=== PATIENT | female | born 1990 | race Caucasian/White ===

== ENCOUNTER 2017-11-26 15:57 | Emergency (ER) | payer SELFPAY ==
[2017-11-26 16:38] VITALS: BMI 25.1
[2017-11-26] MEDS ORDERED: ACETAMINOPHEN 1000 MG/100 ML VIAL (NON FORMULARY) IVPB ONE (17:14)
[2017-11-26] MEDS ORDERED: SODIUM CHLORIDE 0.9% 500 ML INFUS.BAG IV ONE (17:14)
--- NOTE | 2017-11-26 17:23 | PDOC ---
Attending Attestation - Resident Resident Name: Maninder Arredondo - ED Attending Attestation I have performed the following: I have examined & evaluated the patient, The case was reviewed & discussed with the resident, I agree w/resident's findings & plan, Exceptions are as noted - HPI HPI: 11/26/17 17:22 27y F hx of chlamydia, ?ovarian infection, presents with complaint of LLQ dull abd pain x 2-3 days, pain is sharp/crampy in nature lasting for a minute before resolving , without radiation but worsens from to level 7. Patient deneis any fever/chills, vaginal bleeding or discharge, back pain, diarrhea, melena, bpr. pts labs sexual encounter was 3 months ago. Pt had her last depo shot 3 or 4 months ago and was due for her next one a few weeks ago. On exam pt is well appearing no distress abd soft nontender, no rebound/guarding no cva tenderness pelvic exam as documented by dr. arredondo ddx: ovarian cyst, torsion, consider STDs - will send gc but as pt has not been sexually active nor with discharge ercently will defer prophylactic treatment will ck TVUS if neg will dc with pmd fu (Dr. Chowdhury) - Physicial Exam PE: 11/26/17 19:48 see above - Medical Decision Making 11/26/17 19:48 see above
--- NOTE | 2017-11-26 17:44 | PDOC ---
History of Present Illness - General Chief Complaint: Pain Stated Complaint: ABD PAIN Time Seen by Provider: 11/26/17 16:52 - History of Present Illness Initial Comments: 11/26/17 17:39 27 yo F w a hx of chlamydia and an undetermined L ovarian infection in the past is here with on and off 3 days of sharp LLQ abdominal pain. She is not currently experiencing much pain, she rates it as 2/10. At its worst she rates the pain as 8/10. The pain does not radiate to the groin or back. The pain is worse when she lies on her back and better when she lies on her side. She denies recent fevers or infections, denies nausea or vomiting. She has been eating and drinking normally with no complaints. She has been going to the bathroom normally and has no urinary or bowel complaints. She is on depot control and gets a shot every 3 months. Past History - Past Medical History Allergies/Adverse Reactions: Allergies Allergy/AdvReac Type Severity Reaction Status Date / Time No Known Allergies Allergy Verified 12/28/12 12:07 Home Medications: Ambulatory Orders Estradiol Cypionate [Depo-Estradiol] 5 mg IM ASDIR 11/26/17 Asthma: No Cancer: No Cardiac Disorders: No COPD: No Diabetes: No HTN: No Seizures: No Thyroid Disease: No - Suicide/Smoking/Psychosocial Hx Smoking Status: No Smoking History: Current some day smoker Have you smoked in the past 12 months: Yes Number of Cigarettes Smoked Daily: 2 Information on smoking cessation initiated: No Hx Alcohol Use: Yes (social) Drug/Substance Use Hx: No Substance Use Type: None Hx Substance Use Treatment: No Review of Systems - Review of Systems Comments:: 11/26/17 17:45 GASTROINTESTINAL: Positive: LLQ abdominal pain Absent: abdominal distension, nausea, vomiting, diarrhea, constipation, melena, hematochezia GENITOURINARY: Absent: dysuria, frequency, urgency, hesitancy, hematuria, flank pain, genital pain CONSTITUTIONAL: Absent: fever, chills, diaphoresis, generalized weakness, malaise, loss of appetite HEENT: Absent: rhinorrhea, nasal congestion, throat pain, throat swelling, difficulty swallowing, mouth swelling, ear pain, eye pain, visual Changes CARDIOVASCULAR: Absent: chest pain, syncope, palpitations, irregular heart rate, lightheadedness , peripheral edema RESPIRATORY: Absent: cough, shortness of breath, dyspnea with exertion, orthopnea, wheezing, stridor, hemoptysis MUSCULOSKELETAL: Absent: myalgia, arthralgia, joint swelling SKIN: Absent: rash, itching, pallor HEMATOLOGIC/IMMUNOLOGIC: Absent: easy bleeding, easy bruising, lymphadenopathy, frequent infections ENDOCRINE: Absent: unexplained weight gain, unexplained weight loss, heat intolerance, cold intolerance NEUROLOGIC: Absent: headache, focal weakness or paresthesias, dizziness, unsteady gait, seizure, mental status changes, bladder or bowel incontinence PSYCHIATRIC: Absent: anxiety, depression, suicidal or homicidal ideation, hallucinations. *Physical Exam - Vital Signs Last Vital Signs Temp Pulse Resp BP Pulse Ox 98.8 F 60 17 139/43 100 11/26/17 16:33 11/26/17 16:33 11/26/17 16:33 11/26/17 16:33 11/26/17 17:20 - Physical Exam Comments: 11/26/17 17:46 Pelvic exam: Normal appearing cervix. No abnormal discharge seen. There was no CMT and no adnexal Tenderness. ABDOMINAL: There is mild ttp in the LLQ. no TTP in the other 3 quadrants. The abdomen is soft and non-distended. No rebound or guarding. No organomegaly. Normoactive bowel sounds. GENERAL: Well developed, well nourished. Awake and alert. No acute distress. HEENT: Normocephalic, atraumatic. PERRLA, EOMI. No conjunctival pallor. Sclera are non- icteric. Moist mucous membranes. Oropharynx is clear. NECK: Supple. Full ROM. No JVD. Carotid pulses 2+ and symmetric, without bruits. No thyromegaly. No lymphadenopathy. CARDIOVASCULAR: Regular rate and rhythm. No murmurs, rubs, or gallops. Distal pulses are 2+ and symmetric. PULMONARY: No evidence of respiratory distress. Lungs clear to auscultation bilaterally. No wheezing, rales or rhonchi. MUSCULOSKELETAL Normal range of motion at all joints. No bony deformities or tenderness. No CVA tenderness. EXTREMITIES: No cyanosis. No clubbing. No edema. No calf tenderness. SKIN: Warm and dry. Normal capillary refill. No rashes. No jaundice. NEUROLOGICAL: Alert, awake, appropriate. Cranial nerves 2-12 intact. No deficits to light touch and temperature in face, upper extremities and lower extremities. No motor deficits in the in face, upper extremities and lower extremities. Normoreflexic in the upper and lower extremities. Normal speech. Toes are down-going bilaterally. Gait is normal without ataxia. PSYCHIATRIC: Cooperative. Good eye contact. Appropriate mood and affect. 11/26/17 18:15 ED Treatment Course - LABORATORY CBC & Chemistry Diagram: 11/26/17 17:45 11/26/17 17:45 - RADIOLOGY Radiology Studies Ordered: Category Date Time Status TRANSVAGINAL ULTRASOUND US [US] Stat Ultrasound 11/26/17 17:15 Ordered Medical Decision Making - Medical Decision Making 11/26/17 18:16 27 yo F w a hx of Left ovarian infection, possible TOA, is here with LLQ abdominal pain. No N/V/D. No abnormal discharge, no adnexal tenderness. Patient denies fevers or recent infections. Plan: TVUS, labs, urine, STD testing, analgesia, fluids, re-assess. TVUS, Labs and urine were unremarkable. Patient feels better after tylenol and will follow up with a cuffing machine operator. 11/26/17 20:30 *DC/Admit/Observation/Transfer Diagnosis at time of Disposition: Left lower quadrant abdominal tenderness - Discharge Dispostion Disposition: HOME Condition at time of disposition: Improved Decision to Admit order: No - Referrals Referrals: Jose Chowdhury MD [Primary Care Provider] - Mei Bailey MD [Staff Physician] - - Patient Instructions Printed Discharge Instructions: DI for Pelvic Pain Additional Instructions: Please make sure to follow up with a cuffing machine operator in the next week to monitor your left lower abdominal pain. Come back to the emergency room if the pain becomes much worse, you develop a fever, or any other concerning symptoms arise. Take advil or motrin as needed for the pain. - Post Discharge Activity
[2017-11-26] MEDS ORDERED: ACETAMINOPHEN INJECTION 100 ML IVPB ONE (17:50)
[2017-11-26 17:57] LABS: BASO % 0.3 % (0-2.0); EOS % 1.2 % (0-4.5); HEMOGLOBIN 12.9 GM/dL (10.7-15.3); LYMPH % 27.1 % (8-40); MEAN PLT VOLUME 7.9 fl (7.5-11.1); MONO % 5.6 % (3.8-10.2); NEUT % 65.8 % (42.8-82.8); PLATELET COUNT 262 K/MM3 (134-434); RBC 4.76 M/mm3 (3.60-5.2); RDW 13.7 % (11.6-15.6); WHITE BLOOD COUNT 10.8 K/mm3 (4.0-10.0)
[2017-11-26 18:28] LABS: URINE APPEARANCE CLEAR; URINE BILIRUBIN NEGATIVE (<2.0 mg/dL); URINE COLOR LTYELLOW; URINE GLUCOSE (UA) NEGATIVE (NEGATIVE); URINE KETONE NEGATIVE (NEGATIVE); URINE LEUK ESTERASE NEGATIVE (NEGATIVE); URINE NITRITE NEGATIVE (NEGATIVE); URINE PROTEIN NEGATIVE (NEGATIVE); URINE UROBILINOGEN NEGATIVE mg/dL (0.2-1.0)
[2017-11-26 18:29] LABS: ALBUMIN 4.1 g/dl (3.4-5.0); ALK PHOS 110 U/L (45-117); ANION GAP 7 (8-16); BILIRUBIN,TOTAL 0.5 mg/dL (0.2-1.0); BLOOD UREA NITROGEN 14 mg/dL (7-18); CALCIUM 8.7 mg/dL (8.5-10.1); CHLORIDE 107 mmol/L (98-107); CO2 26 mmol/L (21-32); CREATININE 0.7 mg/dL (0.55-1.02); GLUCOSE,RANDOM 87 mg/dL (74-106); POTASSIUM 4.1 mmol/L (3.5-5.1); SGOT/AST 16 U/L (15-37); SGPT/ALT 23 U/L (12-78); SODIUM 140 mmol/L (136-145)
[2017-11-26 18:37] LABS: EPI CELLS RARE /HPF (FEW); URINE MUCUS RARE
[2017-11-26 20:19] VITALS: BP 109/58; PULSE 65; TEMP 98.7
== END 2017-11-26 20:50 | disposition home or self-care (01) ==
LOC: JER 15:57
PROC: 3E033NZ Introduction of Analgesics, Hypnotics, Sedatives into Peripheral Vein, Percutaneous Approach (ICD-10-PCS; principal; 2017-11-26)
PROC: 3E0337Z Introduction of Electrolytic and Water Balance Substance into Peripheral Vein, Percutaneous Approach (ICD-10-PCS; 2017-11-26)
DX: R10.32 Left lower quadrant pain (principal); Z86.19 Personal history of other infectious and parasitic diseases; Z87.42 Personal history of other diseases of the female genital tract
CPT/HCPCS: 36415; 76830-TC; 80053; 81003; 81015; 84703; 85025; 87491; 87591; 99283-25; J0131

== ENCOUNTER 2019-11-20 01:00 | Emergency (ER) | payer OTHER ==
[2019-11-20 01:05] VITALS: BP 109/64; PULSE 65; TEMP 98.9; BMI 26.1
--- NOTE | 2019-11-20 01:24 | PDOC ---
History of Present Illness - General Chief Complaint: Ear Problem Stated Complaint: EAR INFECTION Time Seen by Provider: 11/20/19 01:07 History Source: Patient - History of Present Illness Initial Comments: 11/20/19 01:17 29-year-old female complaining of left ear pain. Patient reports that for the past 3 days she has been going swimming in the swimming pool. Patient reports that she went to urgent care earlier today and was diagnosed with a left otitis externa and was given eardrops. Patient reports that the eardrops did not work and made her pain worse. Patient took ibuprofen 2 hours prior to arrival now pain is much improved. Denies fever/chills, cough, congestion, nasal congestion. Past History - Medical History Allergies/Adverse Reactions: Allergies Allergy/AdvReac Type Severity Reaction Status Date / Time No Known Allergies Allergy Verified 11/20/19 01:05 Home Medications: Ambulatory Orders Estradiol Cypionate [Depo-Estradiol] 5 mg IM ASDIR 11/26/17 Amoxicillin/Potassium Clav [Augmentin 875-125 Tablet] 1 each PO BID #20 tablet 11/20/19 Asthma: No Cancer: No Cardiac Disorders: No COPD: No Diabetes: No HTN: No Seizures: No Thyroid Disease: No - Psycho-Social/Smoking History Smoking Status: No Smoking History: Never smoked Have you smoked in the past 12 months: Yes Number of Cigarettes Smoked Daily: 2 - Substance Abuse Hx (Audit-C & DAST Scrn) How often the patient has a drink containing alcohol: Monthly or less How often the patient has six or more drinks on one occasion: Less than monthly Score: In Men: 4 or > Positive; In Women: 3 or > Positive: 2 Screen Result (Pos requires Nsg. Audit-10AR): Negative In the last yr the pt used illegal drug/Rx for NonMed reason: No Score: Yes response is considered Positive: 0 Screen Result (Positive result requires Nsg. DAST-10): Negative *Physical Exam - Vital Signs Last Vital Signs Temp Pulse Resp BP Pulse Ox 98.9 F 65 18 109/64 98 11/20/19 01:03 11/20/19 01:03 11/20/19 01:03 11/20/19 01:03 11/20/19 01:03 - Physical Exam General Appearance: Yes: Appropriately Dressed HEENT: positive: Normal ENT Inspection, Other (left ear + otitis externa with serous drainage) Neck: negative: Lymphadenopathy (R), Lymphadenopathy (L) Medical Decision Making - Medical Decision Making 11/20/19 01:24 Otitis externa P: ibuprofen augmentin Discharge - Discharge Information Problems reviewed: Yes Clinical Impression/Diagnosis: Otitis externa Qualifiers: Otitis externa type: diffuse Chronicity: acute Laterality: left Qualified Code(s): H60.312 - Diffuse otitis externa, left ear Disposition: HOME - Additional Discharge Information Prescriptions: Amoxicillin/Potassium Clav [Augmentin 875-125 Tablet] 1 each PO BID #20 tablet - Follow up/Referral Referrals: Jose Chowdhury MD [Primary Care Provider] - - Patient Discharge Instructions Patient Printed Discharge Instructions: DI for Otitis Externa Additional Instructions: Take ibuprofen every 6 hours as needed for pain. You may take Tylenol every 4-6 hours as needed for pain. Continue the eardrops given by urgent care. Take Augmentin as prescribed. It is important that you follow-up with a ear nose throat doctor or your primary doctor soon as possible. Return to the emergency room for any worsening symptoms - Post Discharge Activity Work/Back to School Note: Back to Work
== END 2019-11-20 01:30 | disposition home or self-care (01) ==
LOC: JER 01:00
DX: H60.312 Diffuse otitis externa, left ear (principal)
CPT/HCPCS: 99283-25

== ENCOUNTER 2021-11-03 06:15 | Emergency (ER) | payer OTHER ==
[2021-11-03 06:47] VITALS: BMI 28.8
[2021-11-03] MEDS ORDERED: diphenhydrAMINE HCL 25 MG CAPSULE (FP) PO ONE ×2 (07:26→07:27)
[2021-11-03 08:12] VITALS: BP 112/63; PULSE 96; TEMP 97.9
[2021-11-03] MEDS ORDERED: BETAMET ACET/BETAMET NA PH 30 MG/5 ML VIAL IM ONE (08:15)
[2021-11-03] MEDS ORDERED: BETAMET ACET/BETAMET NA PH 30 MG/5 ML VIAL ONE (08:16)
== END 2021-11-03 09:20 | disposition home or self-care (01) ==
LOC: JER 06:15
PROC: 3E033GC Introduction of Other Therapeutic Substance into Peripheral Vein, Percutaneous Approach (ICD-10-PCS; principal; 2021-11-03)
PROC: 3E033GC Introduction of Other Therapeutic Substance into Peripheral Vein, Percutaneous Approach (ICD-10-PCS; 2021-11-03)
DX: R21 Rash and other nonspecific skin eruption (principal)
CPT/HCPCS: 36415; 82542; 96374; 96375; 99284-25

== ENCOUNTER 2021-12-02 08:00 | Inpatient (IN) | payer OTHER ==
[2021-12-02] MEDS ORDERED: OXYTOCIN 30 UNITS in 0.9% NS 30 UNIT/500 ML INFUS.BAG IVPB SCH (09:00)
[2021-12-02] MEDS: ELECTROLYTE-148 SOLN 1,000 ML IV SCH ×2 (09:30→22:30)
[2021-12-02 09:48] VITALS: BMI 29.2
[2021-12-02] MEDS ORDERED: OXYTOCIN 30 UNITS in 0.9% NS 30 UNIT/500 ML INFUS.BAG IVPB ONE (09:57)
[2021-12-02] MEDS ORDERED: PROMETHAZINE HCL 25 MG/1 ML VIAL IVPB ONE (15:15)
[2021-12-02] MEDS ORDERED: BUTORPHANOL TARTRATE 1 MG/ML VIAL IVPB ONE (15:15)
[2021-12-02] MEDS ORDERED: BUTORPHANOL TARTRATE 1 MG/ML VIAL ONE (16:08)
[2021-12-02] MEDS ORDERED: PROMETHAZINE HCL 25 MG/1 ML VIAL ONE (16:09)
[2021-12-02] MEDS ORDERED: FENTANYL/BUPIVACAINE/NS/PF - PCEA - 50 ML DISP.SYRIN EP ONE ×2 (16:21→20:37)
[2021-12-02] MEDS: FENTANYL/BUPIVACAINE/NS/PF - PCEA - 50 ML DISP.SYRIN EP SCH ×2 (16:45→20:40)
[2021-12-02] MEDS ORDERED: NALOXONE HCL 0.4 MG/ML VIAL IVPUSH PRN (17:42)
[2021-12-02] MEDS ORDERED: LIDOCAINE HCL/EPINEPHRINE/PF 20 ML VIAL ONE (19:54)
[2021-12-02] MEDS ORDERED: OXYTOCIN 20 UNITS in 0.9% NS 20 UNIT/1,000 ML INFUS.BAG IV ONE (22:57)
[2021-12-02] MEDS ORDERED: LIDOCAINE HCL 1% PRESERVATIVE FREE - 30ML VIAL ONE (22:57)
[2021-12-03] MEDS ORDERED: WITCH HAZEL 50% (TUCKS) 40 PAD/JAR PAD TP PRN (01:27)
[2021-12-03] MEDS ORDERED: oxyCODONE HCL 5 MG TABLET PO PRN (01:27)
[2021-12-03] MEDS ORDERED: BENZOCAINE 20% 57 GM BOTTLE TP PRN (01:27)
[2021-12-03] MEDS ORDERED: BISACODYL 10 MG SUPP.RECT RC PRN (01:27)
[2021-12-03] MEDS ORDERED: ACETAMINOPHEN 325 MG TABLET (FP) PO PRN (01:27)
[2021-12-03] MEDS ORDERED: METHYLERGONOVINE MALEATE 0.2 MG/1 ML AMP IM PRN (01:27)
[2021-12-03] MEDS ORDERED: BENZOCAINE 28 GM HEMORRHOIDAL OINTMENT TP PRN (01:27)
[2021-12-03] MEDS ORDERED: oxyCODONE HCL 5 MG TABLET ONE (01:29)
[2021-12-03] MEDS ORDERED: OXYTOCIN 20 UNITS in 0.9% NS 20 UNIT/1,000 ML INFUS.BAG IV SCH (01:30)
[2021-12-03] MEDS: IBUPROFEN 600 MG TABLET (FP) PO PRN ×4 (05:15→20:14)
[2021-12-04] MEDS: IBUPROFEN 600 MG TABLET (FP) PO PRN (09:08)
[2021-12-04 09:24] LABS: BASO % 0.3 % (0-2.0); EOS % 1.1 % (0-4.5); HEMATOCRIT 30.1 % (32.4-45.2); LYMPH % 21.6 % (8-40); MCH 26.6 pg (25.7-33.7); MCHC 33.1 g/dl (32.0-36.0); MEAN CELL VOLUME 80.3 fl (80-96); MEAN PLT VOLUME 8.4 fl (7.5-11.1); MONO % 7.3 % (3.8-10.2); NEUT % 69.7 % (42.8-82.8); PLATELET COUNT 244 10^3/uL (134-434); RBC 3.74 M/mm3 (3.60-5.2); RDW 14.3 % (11.6-15.6); WHITE BLOOD COUNT 14.5 K/mm3 (4.0-10.0)
[2021-12-04] MEDS: FENTANYL/BUPIVACAINE/NS/PF - PCEA - 50 ML DISP.SYRIN EP SCH (19:05)
[2021-12-04] MEDS ORDERED: SENNOSIDES/DOCUSATE COMBO (SENNA PLUS) TABLET (UD) PO PRN (22:00)
[2021-12-04 22:16] VITALS: RESP 18
[2021-12-05] MEDS: IBUPROFEN 600 MG TABLET (FP) PO PRN ×2 (00:50→08:21)
[2021-12-05] MEDS: FENTANYL/BUPIVACAINE/NS/PF - PCEA - 50 ML DISP.SYRIN EP SCH (07:06)
[2021-12-05 09:11] VITALS: BP 116/77; PULSE 76; TEMP 98.4
== END 2021-12-05 12:30 | disposition home or self-care (01) | DRG 560 ==
LOC: JLDR 08:00 → J3W 12-03 03:30
PROVIDERS: ADMIT Specialist; ATTEND Specialist
PROC: 0W8NXZZ Division of Female Perineum, External Approach (ICD-10-PCS; principal; 2021-12-03)
PROC: 10D07Z6 Extraction of Products of Conception, Vacuum, Via Natural or Artificial Opening (ICD-10-PCS; 2021-12-03)
DX: O48.0 Post-term pregnancy (principal); Z3A.40 40 weeks gestation of pregnancy; O66.5 Attempted application of vacuum extractor and forceps; Z37.0 Single live birth
CPT/HCPCS: 36415; 59409; 80053; 85025; 85027; 85610; 85730; 86780; 86850; 86900; 86901; 87389; C9803-CS; U0003; U0005

== ENCOUNTER 2022-03-01 12:31 | Emergency (ER) | payer OTHER ==
[2022-03-01 12:40] VITALS: BP 110/69; PULSE 71; RESP 18; TEMP 97.9; BMI 26.7
== END 2022-03-01 14:19 | disposition home or self-care (01) ==
LOC: JERFT 12:31
DX: M25.531 Pain in right wrist (principal)
CPT/HCPCS: 99283-25

== ENCOUNTER 2022-07-03 14:24 | Emergency (ER) | payer OTHER ==
[2022-07-03 14:28] VITALS: BP 141/81; PULSE 103; RESP 18; TEMP 98; BMI 28.8
== END 2022-07-03 15:23 | disposition home or self-care (01) ==
LOC: JER 14:24 → JERFT 14:24
PROC: 0H98XZZ Drainage of Buttock Skin, External Approach (ICD-10-PCS; principal; 2022-07-03)
DX: K61.0 Anal abscess (principal)
CPT/HCPCS: 87070; 87076; 87205; 99283-25

== ENCOUNTER 2022-07-05 13:05 | Emergency (ER) | payer OTHER ==
[2022-07-05 13:16] VITALS: BP 115/52; PULSE 71; RESP 16; TEMP 98.4; BMI 29.7
== END 2022-07-05 13:42 | disposition home or self-care (01) ==
LOC: JERFT 13:05
DX: Z48.00 Encounter for change or removal of nonsurgical wound dressing (principal)
CPT/HCPCS: 99281-25